=== PATIENT | female | born 1965 | race African-American/Black ===

== ENCOUNTER → 2016-11-12 | Outpatient (CLI) | payer OTHER ==
[~2016-11-12] MED LIST: ALBU6.7H INH; MULT1TAB84 PO
== END ==
LOC: PLAB 07:03
PROVIDERS: ATTEND Family Medicine
DX: M79.674 Pain in right toe(s) (principal)
CPT/HCPCS: 84550

== ENCOUNTER → 2016-12-17 | Outpatient (CLI) | payer OTHER ==
[~2016-12-17] VITALS: Ht 152.4 cm; Wt 67.7 kg
[~2016-12-17] MED LIST changes: +INSULIN HUMAN REGULAR 1,000 UNITS/10 ML VIAL SQ PRN; +LACTATED RINGER'S 1000 ML IV SCH; +METOPROLOL TARTRATE 25 MG TAB PO PRN; +PROPOFOL 200 MG/20 ML AMP IV ONE; +SODIUM CHLORID 0.9% 500 ML IV SCH
[2016-12-17 12:14] VITALS: BP 119/68; PULSE 73; RESP 16; TEMP 98.1; O2SAT 100
[2016-12-17 14:48] VITALS: BP 110/66; PULSE 72; RESP 16; TEMP 97.8; O2SAT 100
--- NOTE | 2016-12-17 23:15 | EKG ---
Date Performed: 12/17/2016 Time Performed: 12:37:52 PTAGE: 51 years EKG: Sinus rhythm INCOMPLETE RIGHT BUNDLE BRANCH BLOCK NONSPECIFIC T-WAVE ABNORMALITY BORDERLINE ECG PREVIOUS TRACING : 08/02/1995 15.21 Compared to prior tracing no significant change DOCTOR: Rajinder Dennis Interpretating Date/Time 12/17/2016 23:13:45
--- NOTE | 2016-12-18 06:48 | MR ---
cc: IRIS SOLER M.D., HARRY M.D. DATE: 12/17/2016 DATE OF : 1965 TYPE OF PROCEDURE 1. Panendoscopy with esophageal biopsies and esophageal dilation. 2. Colonoscopy with polypectomies. [employer] Dr. Daniel Johnson INDICATION FOR PROCEDURE Recurrent dysphagia with food catching at the level of the mid esophagus and some heartburn symptoms. She takes Zantac twice a day. Previously dysphagia improved with esophageal dilation. She is not aware of what may have caused the dysphagia previously. Additionally screening colonoscopy, average risk. MEDICATIONS Sedation per anesthesiology. INSTRUMENTS Pentax video gastroscope and colonoscope and the XipLink 17 mm dilator. PROCEDURE After obtaining written informed consent the patient was placed in a left lateral decubitus position. Adequate sedation was administered. The video gastroscope was passed under direct vision through the oropharynx into the esophagus which appeared normal along its entire extent. The Z-line appeared normal at the GE junction at 39 cm. No strictures or rings were noted. Random biopsies were taken to check for eosinophilic esophagitis. The gastric mucosa, pylorus, duodenal bulb and sweep all appeared normal. A guidewire was passed through the biopsy channel of the gastroscope into the antrum and the scope was withdrawn. Over the guidewire was passed a lubricated 17 mm dilator with moderate resistance met at the level of the upper esophageal sphincter and less so further down. This dilator was withdrawn with the guidewire and the procedure was terminated. The patient tolerated the procedure well and there were no apparent complications. The stretcher was turned around. A digital rectal examination was performed. No gross lesions were noted. The colonoscope was placed into the anus and advanced slowly to the cecum. The cecal base and ileocecal valve appeared normal. Upon withdrawal of the instrument the mucosal surfaces were well-visualized. In the sigmoid colon a flat 3 mm polyp and a slightly raised 6 mm polyp were removed with cold snare polypectomy. Retroflexion of the instrument in the rectum revealed no abnormality. The instrument was withdrawn and the procedure was terminated. The patient tolerated it well. There were no apparent complications. Upon completion the patient was sedated and had normal stable vital signs. IMPRESSION 1. Normal esophagus, stomach, pylorus and duodenum. 2. Esophageal biopsies taken to check for eosinophilic esophagitis. 3. 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 4. Colonoscopy to cecum. 5. Two small sigmoid polyps removed with cold snare polypectomy. DISPOSITION The patient is to be observed per routine post-procedure protocol. She may return home. I suggest avoiding cold fluids and foods, and drinking warm liquids, especially before and with pills and meals. Will contact her in several days with the histology report. Repeat dilation can be performed on an as-needed basis. Will contact her with the polypectomy report and determine timing for follow-up colonoscopy. MD KRISTINE Mcnair/CAMERON /2:32 PM /6:28 AM
== END ==
LOC: HEND 11:24
DX: K22.2 Esophageal obstruction (principal); R13.10 Dysphagia, unspecified; K21.9 Gastro-esophageal reflux disease without esophagitis; Z12.11 Encounter for screening for malignant neoplasm of colon; C18.7 Malignant neoplasm of sigmoid colon; Z01.810 Encounter for preprocedural cardiovascular examination
CPT/HCPCS: 00740; 43239; 43248; 45385; 88305; 93005; C1769